=== PATIENT | female | born 1950 | race Caucasian/White ===

== ENCOUNTER 2021-06-03 13:35 | Emergency (ER) | payer OTHER | END 2021-06-03 16:41 | disposition home or self-care (01) | LOC: ER1 13:35 | DX: S01.01XA Laceration without foreign body of scalp, initial encounter (principal); I10 Essential (primary) hypertension; E11.9 Type 2 diabetes mellitus without complications; Z23 Encounter for immunization; E03.9 Hypothyroidism, unspecified; W01.10XA Fall on same level from slipping, tripping and stumbling with subsequent striking against unspecified object, initial encounter | CPT/HCPCS: 12002; 70450; 90471; 90715; 99283 ==